=== PATIENT | female | born 1960 | race Caucasian/White ===

== ENCOUNTER 2018-02-21 22:56 | Emergency (ER) | payer MEDICARE ==
[~2018-02-21] VITALS: Ht 160 cm; Wt 79.5 kg
[2018-02-21 23:03] VITALS: BP 142/62; TEMP 98.6
[2018-02-21] MEDS ORDERED: GLUCOPHAGE500 MG/TAB PO (23:11)
[2018-02-21] MEDS ORDERED: GLUCOTROL 5M5 MG/TAB PO (23:11)
[2018-02-21] MEDS ORDERED: PRINIVIL10 MG PO (23:11)
[2018-02-21] MEDS ORDERED: FLEXERIL5 MG PO (23:12)
[2018-02-21] MEDS ORDERED: NORCO 325 MG-7.1 TAB PO (23:12)
[2018-02-21] MEDS ORDERED: MS CONTIN 115 MG/TAB PO (23:12)
[2018-02-21] MEDS ORDERED: BUSPAR5 MG PO (23:12)
[2018-02-21] MEDS ORDERED: ZOCOR 10MG10 MG PO (23:12)
[2018-02-21] MEDS ORDERED: ATIVAN 0.50.5 MG/TAB PO (23:13)
[2018-02-21] MEDS ORDERED: DESYREL 50MG50 MG PO (23:13)
[2018-02-21] MEDS ORDERED: ZOFRAN 4MG T4 MG/TAB PO (23:15)
[2018-02-21] MEDS ORDERED: IBU800 M1 PO (23:16)
[2018-02-21] MEDS ORDERED: CLEOCIN HCL300 MG PO (23:43)
[2018-02-22 00:31] VITALS: PULSE 89
== END 2018-02-22 00:32 | disposition home or self-care (01) ==
LOC: COL.ER 22:56
DX: K02.9 Dental caries, unspecified (principal); E11.9 Type 2 diabetes mellitus without complications; Z79.84 Long term (current) use of oral hypoglycemic drugs
CPT/HCPCS: J1170